=== PATIENT | female | born 1965 | race Caucasian/White ===

== ENCOUNTER 2016-10-23 16:24 | Inpatient (IN) | payer MEDICAID, OTHER ==
[~2016-10-23] VITALS: Ht 175.3 cm; Wt 112.2 kg
[~2016-10-23 16:24] MED LIST: ORPH100T PO; PERC10TA27 PO
[2016-10-23 16:32] VITALS: BP 122/75; PULSE 97; RESP 16; TEMP 98; O2SAT 95
[2016-10-23] MEDS ORDERED: CEPH-460 PO (16:39)
[2016-10-23] MEDS ORDERED: ASPI81CH CHEW (16:39)
[2016-10-23 17:04] LABS: AUTOMATED NEUTROPHIL # 5.9 TH/MM3 (1.8-7.7); BASOPHIL # 0.1 TH/MM3 (0-0.2); BASOPHIL % 0.7 % (0.0-2.0); EOSINOPHIL # 0.4 TH/MM3 (0-0.4); HEMO FLAGS DIFF FINAL; LYMPH % 21.7 % (9.0-44.0); LYMPHOCYTE # 1.9 TH/MM3 (1.0-4.8); MEAN CELL VOLUME 87.9 FL (80.0-100.0); MEAN CORPUSCULAR HEMOGLOBIN 29.1 PG (27.0-34.0); MEAN CORPUSCULAR HGB CONC 33.1 % (32.0-36.0); MONO % 7.2 % (0.0-8.0); NEUT % 66.4 % (16.0-70.0); PLATELET COUNT 245 TH/MM3 (150-450); RED BLOOD COUNT 5.35 MIL/MM3 (4.00-5.30); RED CELL DISTRIBUTION WIDTH 12.5 % (11.6-17.2); WHITE BLOOD COUNT 8.9 TH/MM3 (4.0-11.0)
--- NOTE | 2016-10-23 17:09 | PD ---
HPI Chief Complaint: Abnormal Results Time Seen by Provider: 16:36 Travel History International Travel<30 days: No Contact w/Intl Traveler<30days: No Traveled to known affect area: No History of Present Illness HPI The patient was seen and examined in the presence of the nurse. This patient reports that she had an ultrasound 8 days ago that showed a superficial vein clot in her left leg. She takes a daily baby aspirin. She felt like the clot was moving up her leg so she had an outpatient ultrasound of her leg today. He did not get any results of that. She has had shortness of breath recently and told that to the certified emergency vehicle technician so she recommended she go to the emergency room. She had this done in [place] at a [facility] outpatient clinic. She did not like [place] so she skipped that place and came here to [place]. She also has anxiety. No cough or fever or chest pain. No history of DVT. Symptoms severity is moderate. No alleviating factors. PFSH Past Medical History Anxiety: Yes Diminished Hearing: No Migraines: Yes Pancreatitis: Yes ?: Not Menopausal: Yes Past Surgical History Cholecystectomy: Yes Tonsillectomy: Yes Social History Alcohol Use: Yes (SOCIALLY) Tobacco Use: Yes (E-CIG) Substance Use: No Allergies-Medications (Allergen,Severity, Reaction): Coded Allergies: No Known Allergies (Unverified , 12/09/14) Reported Meds & Prescriptions Reported Meds & Active Scripts Active Reported Aspirin 81 Mg Chew 81 Mg CHEW DAILY Keflex (Cephalexin) 500 Mg Cap 500 Mg PO Q12H Review of Systems General / Constitutional: No: Fever Eyes: No: Visual changes HENT: No: Headaches Cardiovascular: No: Chest Pain or Discomfort Respiratory: Positive: Shortness of Breath Gastrointestinal: No: Abdominal Pain Genitourinary: No: Dysuria Musculoskeletal: Positive: Pain Skin: No Rash Neurologic: No: Weakness Psychiatric: Positive: Anxiety, No: Depression Endocrine: No: Polydipsia Hematologic/Lymphatic: No: Easy Bruising Physical Exam Narrative GENERAL: Well-nourished, well-developed patient in no apparent distress. SKIN: Focused skin assessment reveals no rash and nodules. Skin is Warm and dry. HEAD: Atraumatic. Normocephalic. EYES: Pupils equal and round. No scleral icterus. No injection or drainage. ENT: No nasal bleeding or discharge. Mucous membranes pink and moist. NECK: Trachea midline. No JVD. CARDIOVASCULAR: Regular rate and rhythm. No murmur appreciated. RESPIRATORY: No accessory muscle use. Clear to auscultation. Breath sounds equal bilaterally. GASTROINTESTINAL: Abdomen soft, non-tender, nondistended. Hepatic and splenic margins not palpable. MUSCULOSKELETAL: No obvious deformities. No clubbing. No cyanosis. No edema. NEUROLOGICAL: Awake and alert. No obvious cranial nerve deficits. Motor grossly within normal limits. Normal speech. PSYCHIATRIC: Appropriate mood and affect; insight and judgment normal. Data Data Last Documented VS Vital Signs Date Time Temp Pulse Resp B/P Pulse Ox O2 Delivery O2 Flow Rate FiO2 10/23/16 17:04 15 10/23/16 16:32 98.0 97 122/75 95 Orders Iv Access Insert/Monitor (10/23/16 16:47) Complete Blood Count With Diff (10/23/16 16:47) Prothrombin Time / Inr (Pt) (10/23/16 16:47) Act Partial Throm Time (Ptt) (10/23/16 16:47) Basic Metabolic Panel (Bmp) (10/23/16 16:47) Ct Pulmonary Angiogram (10/23/16 ) Iohexol 350 Inj (Omnipaque 350 Inj) (10/23/16 17:21) Admit Order (Ed Use Only) (10/23/16 17:58) Heparin Infusion CHEIKH.Q1H (10/23/16 18:00) Heparin Inj (Heparin Inj) (10/23/16 18:00) Heparin Inj (Heparin Inj) (10/24/16 00:00) Heparin Inj (Heparin Inj) (10/24/16 00:00) Heparin-D5w Inj (Heparin-D5w Inj) (10/23/16 18:00) Act Partial Throm Time (Ptt) (10/23/16 18:00) Cbc No Diff, Includes Plts (10/23/16 18:00) Cbc No Diff, Includes Plts (10/26/16 06:00) Act Partial Throm Time (Ptt) (10/24/16 01:00) Occult Blood (Hemoccult) Stool (10/23/16 18:00) Labs Laboratory Tests Test 10/23/16 16:58 White Blood Count 8.9 TH/MM3 Red Blood Count 5.35 MIL/MM3 Hemoglobin 15.6 GM/DL Hematocrit 47.0 % Mean Corpuscular Volume 87.9 FL Mean Corpuscular Hemoglobin 29.1 PG Mean Corpuscular Hemoglobin 33.1 % Concent Red Cell Distribution Width 12.5 % Platelet Count 245 TH/MM3 Mean Platelet Volume 8.3 FL Neutrophils (%) (Auto) 66.4 % Lymphocytes (%) (Auto) 21.7 % Monocytes (%) (Auto) 7.2 % Eosinophils (%) (Auto) 4.0 % Basophils (%) (Auto) 0.7 % Neutrophils # (Auto) 5.9 TH/MM3 Lymphocytes # (Auto) 1.9 TH/MM3 Monocytes # (Auto) 0.6 TH/MM3 Eosinophils # (Auto) 0.4 TH/MM3 Basophils # (Auto) 0.1 TH/MM3 CBC Comment DIFF FINAL Differential Comment Prothrombin Time 10.0 SEC Prothromb Time International 0.9 RATIO Ratio Activated Partial 36.7 SEC Thromboplast Time Sodium Level 141 MEQ/L Potassium Level 4.3 MEQ/L Chloride Level 105 MEQ/L Carbon Dioxide Level 27.9 MEQ/L Anion Gap 8 MEQ/L Blood Urea Nitrogen 14 MG/DL Creatinine 1.00 MG/DL Estimat Glomerular Filtration 58 ML/MIN Rate Random Glucose 95 MG/DL Calcium Level 9.2 MG/DL MDM Medical Decision Making Medical Screen Exam Complete: Yes Emergency Medical Condition: Yes Medical Record Reviewed: Yes Differential Diagnosis PE, anxiety, DVT, superficial thrombophlebitis Narrative Course I have reviewed the patient's electronic medical record. I reviewed her lab studies from one month ago. Reviewed her ultrasound results from 8 days ago IV placed CBC is normal Metabolic profile is normal Coagulation studies are normal I reviewed her CT pulmonary angiogram results and discussed with radiologist. She has a moderate sized right sided PE. I have placed her on heparin drip with bolus per weight based protocol. I have reviewed the case with Dr. Russell who will admit She had an outpatient ultrasound of the leg today so I did not repeat that and Dr. Russell will attempt to access the results. I do not have access to that at this time Diagnosis Primary Impression: PE (pulmonary thromboembolism) Admitting Information Admitting Physician Requests: it Randall Early MD Oct 23, 2016 17:09
[2016-10-23 17:17] LABS: BICARBONATE 27.9 MEQ/L (21.0-32.0)
[2016-10-23 17:19] LABS: APTT (PATIENT) 36.7 SEC (24.3-30.1); INTERNATIONAL NORMALIZED RATIO 0.9 RATIO
[2016-10-23] MEDS ORDERED: IOHEXOL 350 MG/ML 10 ML VIAL (for RAD DIAG) IV ONE (17:21)
[2016-10-23 17:37] LABS: POTASSIUM 4.3 MEQ/L (3.5-5.1)
[2016-10-23] MEDS ORDERED: HEPARIN SODIUM - IV 10,000 UNITS/10 ML VIAL IV ONE (18:00)
[2016-10-23] MEDS ORDERED: HEPARIN-D5W INJ 250 ML IV SCH (18:00)
--- NOTE | 2016-10-23 18:20 | RADRPT ---
EXAM DATE/TIME: 10/23/2016 17:03 [place] COMPARISON: No previous studies available for comparison. INDICATIONS : Short of breath. IV CONTRAST: 75 cc Omnipaque 350 (iohexol) IV RADIATION DOSE: 20.71 CTDIvol (mGy) MEDICAL HISTORY : Pancreatitis. Deep venous thrombosis. SURGICAL HISTORY : None. ENCOUNTER: Initial ACUITY: 1 day PAIN SCALE: 0/10 LOCATION: chest TECHNIQUE: Volumetric scanning of the chest was performed using a pulmonary embolism protocol MIP images were re constructed. Using automated exposure control and adjustment of the mA and/or kV according to patien t size, radiation dose was kept as low as reasonably achievable to obtain optimal diagnostic quality images. DICOM format image data is available electronically for review and comparison. Follow-up recommendations for incidentally detected pulmonary nodules are based at a minimum on nodul e size and patient risk factors according to Fleischner Society Guidelines. FINDINGS: PULMONARY ARTERIES: Examination is abnormal. There is a large filling defect extending from the main right pulmonary yazan ry to the lobar branches of the right upper and lower lobes and more distally to the segmental branch es of the right lower lobe. No significant definitive filling defects are noted to the subsegmental l evel on the left. LUNGS: There is a 7 x 8mm nodule in the right upper lobe posteriorly abutting the major fissure. Mild right basilar groundglass opacities likely reflect volume loss. PLEURAE: There is no pleural thickening or pleural effusion. MEDIASTINUM: There is slight flattening of the intervertebral receptor may reflect some degree of right heart stra in heart is otherwise unremarkable without pericardial effusion. No significant mediastinal adenopath y. MUSCULOSKELETAL: No definite focal abnormal lytic or blastic bony lesions. MISCELLANEOUS: Small 1.2 cm low density right adrenal mass consistent with adenoma. CONCLUSION: 1. Abnormal examination demonstrating pulmonary emboli involving the lobar pulmonary artery branches on the right extending to the segmental branches of the right lower lobe. Overall thrombus burden is moderate and there is subtle flattening of the interventricular septum which may reflect some degree of right heart strain. 2. 7 x 8mm right upper lobe solid lung nodule. Recommend followup examination in 6-12 months per Flei schner 2017 guidelines. 3. Probable 1.2 cm right adrenal adenoma. Findings were personally discussed with ER physician. Jake Hernandez MD on October 23, 2016 at 17:45 Board Certified Radiologist. This report was verified electronically.
[2016-10-23] MEDS ORDERED: SODIUM CHLORIDE 0.9% FLUSH 10 ML FLUSH IV FLUSH PRN (19:15)
[2016-10-23 20:00] VITALS: BP 128/80; PULSE 92; RESP 20; TEMP 97.3; O2SAT 96
--- NOTE | 2016-10-23 20:20 | HHI.HP ---
HPI Service [facility] Hospitalists Primary Care Physician Yue Ortega Admission Diagnosis acute PE Chief Complaint: clot in leg, SOB, sent from u/s dept Travel History International Travel<30 Days: No Contact w/Intl Traveler <30 Da: No Traveled to Known Affected Are: No History of Present Illness This 51-year-old obese but otherwise healthy patient reports that she had an ultrasound 8 days ago that showed a superficial vein clot in her left leg. She subsequently started taking a daily baby aspirin. She felt like the clot was moving up her leg earlier this week so she had an outpatient ultrasound of her leg today. I have reviewed those results which also revealed superficial clot with no DVT. The superficial clot appears nonocclusive. Nonetheless she had reported shortness of breath to the technology auditor during the exam so the tech recommended she go to the emergency room. She had this done in [place] at a [facility] outpatient clinic. She initially stopped at [facility] but stated "it would be hours before I was seen there" so she came to the [place] emergency room for evaluation. She was found to have moderate-sized pulmonary embolus on CTA done here. She states that she has mild shortness of breath but is actually much improved from earlier today. No hemoptysis or hematemesis. No dyspnea on exertion. No chest pain. No fevers or chills. No prolonged immobility. It is noted that she typically wears pressure stockings for her varicose veins but recently lost her job so she stopped wearing her pressure stockings. No recent surgery. No known cancer. She also has mild anxiety and some chronic low back pain. No cough or fever or chest pain. No history of DVT, but did have superficial venous thrombosis approximately 2 and half years ago and has chronic varicose veins. Review of Systems Constitutional: DENIES: Diaphoretic episodes, Fatigue, Fever, Weight gain, Weight loss, Chills, Dizziness, Change in appetite, Night Sweats Endocrine: DENIES: Abnorml menstrual pattern, Heat/cold intolerance, Polydipsia , Polyuria, Polyphagia Eyes: DENIES: Blurred vision, Diplopia, Eye inflammation, Eye pain, Vision loss , Photosensitivity, Double Vision Ears, nose, mouth, throat: DENIES: Tinnitus, Hearing loss, Vertigo, Nasal discharge, Oral lesions, Throat pain, Hoarseness, Ear Pain, Running Nose, Epistaxis, Sinus Pain, Toothache, Odynophagia Respiratory: COMPLAINS OF: Shortness of breath, DENIES: Apneas, Cough, Snoring , Wheezing, Hemoptysis, Sputum production Cardiovascular: DENIES: Chest pain, Palpitations, Syncope, Dyspnea on Exertion , PND, Lower Extremity Edema, Orthopnea, Claudication Gastrointestinal: DENIES: Abdominal pain, Black stools, Bloody stools, BRB per rectum, Constipation, Diarrhea, GERD, Nausea, Reflux, Vomiting, Difficulty Swallowing, Anorexia, See HPI Musculoskeletal: COMPLAINS OF: Back pain, DENIES: Joint pain, Muscle aches, Stiffness, Joint Swelling, Neck pain Integumentary: COMPLAINS OF: Rash Hematologic/lymphatic: DENIES: Bruising, Lymphadenopathy Immunologic/allergic: DENIES: Eczema, Urticaria Neurologic: DENIES: Abnormal gait, Headache, Localized weakness, Paresthesias, Seizures, Speech Problems, Tremor, Poor Balance Psychiatric: COMPLAINS OF: Anxiety Past Family Social History Past Medical History Dependent lower extremity edema Obesity Varicose veins History of gallstone pancreatitis, isolated episode Irritable bowel syndrome Superficial thrombophlebitis 2 and half years ago unprovoked Past Surgical History Lap cholecystectomy approximately 2007 Reported Medications Baby aspirin daily Tumeric daily Allergies: Coded Allergies: No Known Allergies (Unverified , 12/09/14) Family History She is adopted and is unaware of any of her biological family history Social History No tobacco in several years but does smoke a cigarette which she has done for 3 years. She did begin smoking cigarettes at age 12 and did that for approximately 25 years. 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 Physical Exam Vital Signs Vital Signs Date Time Temp Pulse Resp B/P Pulse Ox O2 Delivery O2 Flow Rate FiO2 10/23/16 17:04 15 10/23/16 16:32 98.0 97 16 122/75 95 Physical Exam GENERAL: This is a well-nourished, obese, well-developed patient, in no apparent distress. Alert and oriented. Cooperative. Able to speak in complete sentences without any difficulty. SKIN: Left lower extremity noted for mild erythema edematous serpiginous rash with mild tenderness to palpation along the proximal medial calf and distal medial thigh. No obvious deep cords on exam. Cool and dry. HEAD: Atraumatic. Normocephalic. No temporal or scalp tenderness. EYES: Pupils equal round and reactive. Extraocular motions intact. No scleral icterus. No injection or drainage. ENT: Nose without bleeding, purulent drainage or septal hematoma. Airway patent. NECK: Trachea midline. No JVD or lymphadenopathy. Supple, nontender, no meningeal signs. CARDIOVASCULAR: Regular rate and rhythm without murmurs, gallops, or rubs. RESPIRATORY: Clear to auscultation. Breath sounds equal bilaterally. No wheezes , rales, or rhonchi. GASTROINTESTINAL: Abdomen soft, non-tender, nondistended. No hepato-splenomegaly , or palpable masses. No guarding. MUSCULOSKELETAL: Extremities without clubbing, cyanosis, or edema. No joint tenderness, effusion, or edema noted. Left medial calf tenderness is noted. Varicose veins noted bilateral distal lower extremities. NEUROLOGICAL: Awake and alert. Cranial nerves II through XII intact. Motor and sensory grossly within normal limits. Five out of 5 muscle strength in all muscle groups. Normal speech. Laboratory Laboratory Tests Test 10/23/16 16:58 White Blood Count 8.9 Red Blood Count 5.35 Hemoglobin 15.6 Hematocrit 47.0 Mean Corpuscular Volume 87.9 Mean Corpuscular Hemoglobin 29.1 Mean Corpuscular Hemoglobin 33.1 Concent Red Cell Distribution Width 12.5 Platelet Count 245 Mean Platelet Volume 8.3 Neutrophils (%) (Auto) 66.4 Lymphocytes (%) (Auto) 21.7 Monocytes (%) (Auto) 7.2 Eosinophils (%) (Auto) 4.0 Basophils (%) (Auto) 0.7 Neutrophils # (Auto) 5.9 Lymphocytes # (Auto) 1.9 Monocytes # (Auto) 0.6 Eosinophils # (Auto) 0.4 Basophils # (Auto) 0.1 CBC Comment DIFF FINAL Differential Comment Prothrombin Time 10.0 Prothromb Time International 0.9 Ratio Activated Partial 36.7 Thromboplast Time Sodium Level 141 Potassium Level 4.3 Chloride Level 105 Carbon Dioxide Level 27.9 Anion Gap 8 Blood Urea Nitrogen 14 Creatinine 1.00 Estimat Glomerular Filtration 58 Rate Random Glucose 95 Calcium Level 9.2 Result Diagram: 10/23/16 1658 10/23/16 1658 Imaging Last [address] Angiography 10/23/16 0000 Signed Impressions: Service Date/Time: Sunday, October 23, 2016 17:03 - CONCLUSION: 1. Abnormal examination demonstrating pulmonary emboli involving the lobar pulmonary artery branches on the right extending to the segmental branches of the right lower lobe. Overall thrombus burden is moderate and there is subtle flattening of the interventricular septum which may reflect some degree of right heart strain. 2. 7 x 8mm right upper lobe solid lung nodule. Recommend followup examination in 6-12 months per Fleischner 2017 guidelines. 3. Probable 1.2 cm right adrenal adenoma. Findings were personally discussed with ER physician. Jkae Hernandez MD Review of left lower extremity venous Doppler done at [facility] October 23 at approximately 2 PM reveals; Nonocclusive thrombosis extending through saphenous vein. Venous stasis noted in the popliteal vein. No DVT seen. Assessment and Plan Problem List: (1) PE (pulmonary thromboembolism) Status: Acute Plan: This appears to be an unprovoked pulmonary embolism in a patient who is quite stable. Her risk factors include obesity, varicose veins, and recent sedentary lifestyle. She has been started on heparin drip protocol. I will likely convert her to low molecular weight heparin tomorrow. Avodart he made her aware of some of her options for outpatient care including warfarin which she may elect since it is cheaper and she lost her job recently versus some of the newer alternative oral anticoagulants such as Xarelto or Eliquis. We'll place on telemetry and check echo. She does not appear in any acute distress during my exam. She actually states that her shortness of breath is better now than it was earlier today. Code Status full Discussed Condition With Patient, her son and daughter, and ER physician. Physician Certification 2 Midnight Certification Type: Admission for Inpatient Services Order for Inpatient Services The services are ordered in accordance with Medicare regulations or non- Medicare payer requirements, as applicable. In the case of services not specified as inpatient-only, they are appropriately provided as inpatient services in accordance with the 2-midnight benchmark. Estimated LOS (days): 3 days is the estimated time the patient will need to remain in the hospital, assuming treatment plan goals are met and no additional complications. Post-Hospital Plan: Home Leandro Russell MD PhD Oct 23, 2016 20:20
[2016-10-23] MEDS ORDERED: TEMAZEPAM 15 MG CAP PO PRN (20:30)
[2016-10-23 21:00] VITALS: PULSE 97
[2016-10-23] MEDS: SODIUM CHLORIDE 0.9% FLUSH 10 ML FLUSH IV FLUSH SCH (21:00)
[2016-10-24] VITALS (8 sets, daily range): BP systolic 112–143; BP diastolic 70–82; PULSE 83–97; RESP 18–20; TEMP 95.6–96.9; O2SAT 94–96
[2016-10-24] MEDS ORDERED: HEPARIN SODIUM - IV 10,000 UNITS/10 ML VIAL IV PRN ×2
[2016-10-24 01:33] LABS: APTT (PATIENT) 115.3 SEC (24.3-30.1)
[2016-10-24 05:54] LABS: HEMATOCRIT 47.9 % (35.0-46.0); MEAN CELL VOLUME 88.9 FL (80.0-100.0); MEAN CORPUSCULAR HEMOGLOBIN 29.3 PG (27.0-34.0); PLATELET COUNT 261 TH/MM3 (150-450); RED BLOOD COUNT 5.39 MIL/MM3 (4.00-5.30); RED CELL DISTRIBUTION WIDTH 12.7 % (11.6-17.2); REVIEW FLAG FINAL; WHITE BLOOD COUNT 11.2 TH/MM3 (4.0-11.0)
[2016-10-24 06:06] LABS: APTT (PATIENT) 80.9 SEC (24.3-30.1)
--- NOTE | 2016-10-24 07:11 | HHI.PR ---
Subjective Remarks Feels better this morning. Less swelling and pain in the legs and no more shortness of breath. Tolerating oral intake well. Objective Vitals Vital Signs Date Time Temp Pulse Resp B/P Pulse Ox O2 Delivery O2 Flow Rate FiO2 10/24/16 04:00 96.9 97 20 117/70 94 10/24/16 00:00 95.6 86 20 143/80 94 10/23/16 21:00 97 10/23/16 20:00 97.3 92 20 128/80 96 10/23/16 17:04 15 10/23/16 16:32 98.0 97 16 122/75 95 10/23/16 10/23/16 10/24/16 15:00 23:00 07:00 Intake Total 120 ml Balance 120 ml Intake Oral 120 ml # Voids 1 # Bowel Movements 1 GENERAL: Obese, alert and oriented, in no acute distress. SKIN: Mild erythematous streaking left proximal medial calf and left medial distal thigh but decreased from yesterday's exam. HEAD: Normocephalic. Atraumatic. EYES: No scleral icterus. No injection or drainage. NECK: Supple, trachea midline. No JVD or lymphadenopathy. CARDIOVASCULAR: Regular rate and rhythm without murmurs, gallops, or rubs. RESPIRATORY: Breath sounds equal bilaterally. No accessory muscle use. GASTROINTESTINAL: Abdomen soft, non-tender, nondistended. Bowel sounds normal. MUSCULOSKELETAL: No cyanosis. Trace edema around both ankles. Left medial thigh and proximal calf as noted. BACK: No CVA tenderness. Result Diagram: 10/24/16 0545 10/23/16 1658 Imaging Last [address] Angiography 10/23/16 0000 Signed Impressions: Service Date/Time: Sunday, October 23, 2016 17:03 - CONCLUSION: 1. Abnormal examination demonstrating pulmonary emboli involving the lobar pulmonary artery branches on the right extending to the segmental branches of the right lower lobe. Overall thrombus burden is moderate and there is subtle flattening of the interventricular septum which may reflect some degree of right heart strain. 2. 7 x 8mm right upper lobe solid lung nodule. Recommend followup examination in 6-12 months per Fleischner 2017 guidelines. 3. Probable 1.2 cm right adrenal adenoma. Findings were personally discussed with ER physician. Jake Hernandez MD Review of left lower extremity venous Doppler done at [facility] October 23 at approximately 2 PM reveals; Nonocclusive thrombosis extending through saphenous vein. Venous stasis noted in the popliteal vein. No DVT seen. Urinary Catheter: No Vascular Central Line Catheter: No A/P Problem List: (1) PE (pulmonary thromboembolism) Status: Acute Plan: This appears to be an unprovoked pulmonary embolism in a patient who is quite stable. Her risk factors include obesity, varicose veins, and recent sedentary lifestyle. We'll continue on telemetry and check echo. She does not appear in any acute distress during my exam. Shortness of breath has resolved. We again had a long discussion regarding appropriate anticoagulation therapy. She is done some reading on her own overnight after I presented her with options yesterday. At this point we will convert to once daily Lovenox subcutaneously 1-2 hours after stopping her heparin drip. She will remain on the Lovenox for 5 days and then convert to either Eliquis or Xarelto as an outpatient. We discussed the pros and cons as well as risks benefits side effects of these medications extensively. We also discussed the cheaper option of warfarin. Discharge Planning Hopefully discharge home tomorrow. Leandro Russell MD PhD Oct 24, 2016 07:11
[2016-10-24] MEDS: ENOXAPARIN SODIUM 80 MG/0.8 ML SYRINGE SQ SCH (08:51)
[2016-10-24] MEDS: ENOXAPARIN SODIUM 100 MG/ML SYRINGE SQ SCH (08:51)
[2016-10-24] MEDS: SODIUM CHLORIDE 0.9% FLUSH 10 ML FLUSH IV FLUSH SCH ×2 (09:00→21:00)
--- NOTE | 2016-10-24 09:48 | ECHRPT ---
Indication: pulmonary embolus CONCLUSIONS Normal left ventricular size. Wall thickness is normal. No regional wall motion abnormalities are present. The right ventricular systoilc function is normal. The right ventriclar size is upper limits of normal. The left atrial size is upper limits of normal. The aortic valve is not well visualized. There is trace tricuspid valve regurgitation. Trivial pulmonary valve regurgitation. The pulmonary valve is not well visualized. BP: / HR: Rhythm: MEASUREMENTS (Male / Female) Normal Values Technical Quality:Fair 2D ECHO LV Diastolic Diameter PLAX 4.3 cm 4.2 - 5.9 / 3.9 - 5.3 cm LV Systolic Diameter PLAX 3.1 cm IVS Diastolic Thickness 1.0 cm 0.6 - 1.0 / 0.6 - 0.9 cm LVPW Diastolic Thickness 1.1 cm 0.6 - 1.0 / 0.6 - 0.9 cm LV Relative Wall Thickness 0.5 RV Internal Dim ED PLAX 3.2 cm M-MODE Aortic Root Diameter MM 3.3 cm LA Systolic Diameter MM 4.1 cm LA Ao Ratio MM 1.2 AV Cusp Separation MM 1.8 cm DOPPLER Mitral E Point Velocity 49.9 cm/s Mitral A Point Velocity 71.1 cm/s Mitral E to A Ratio 0.7 LV E' Lateral Velocity 10.3 cm/s Mitral E to LV E' Lateral Ratio 4.8 LV E' Septal Velocity 8.1 cm/s Mitral E to LV E' Septal Ratio 6.2 FINDINGS LEFT VENTRICLE Normal left ventricular size. Wall thickness is normal. The left ventricular systolic function is normal with an estimated ejection fraction in the range of 60-65%. No regional wall motion abnormalities are present. RIGHT VENTRICLE The right ventricular systoilc function is normal. The right ventriclar size is upper limits of normal. LEFT ATRIUM The left atrial size is upper limits of normal. RIGHT ATRIUM The right atrial size is normal. ATRIAL SEPTUM Normal atrial septal thickness without atrial level shunting by limited color doppler interrogation. AORTA The aortic root and proximal ascending aorta are normal in size on limited imaging. MITRAL VALVE Structurally normal mitral valve. No mitral valve stenosis or regurgitation. AORTIC VALVE The aortic valve is not well visualized. No aortic valve stenosis or regurgitation. TRICUSPID VALVE Structurally normal tricuspid valve. There is trace tricuspid valve regurgitation. PULMONARY VALVE Trivial pulmonary valve regurgitation. The pulmonary valve is not well visualized. VESSELS The inferior vena cava is normal in size. PERICARDIUM No pericardial effusion. Amando Xie MD (Electronically Signed) Final Date:24 October 2016 09:47
[2016-10-24 13:15] LABS: APTT (PATIENT) 59.1 SEC (24.3-30.1)
[2016-10-25] VITALS: BP 128/68; PULSE 102; RESP 18; TEMP 97.2; O2SAT 94
[2016-10-25 04:00] VITALS: BP 125/71; PULSE 93; RESP 16; TEMP 97.4; O2SAT 95
[2016-10-25 07:56] VITALS: BP 122/78; PULSE 83; RESP 16; TEMP 97.4; O2SAT 94
--- NOTE | 2016-10-25 08:19 | HHI.PR ---
Subjective Remarks Feeling much better. Has been ambulating around the hallways. No shortness of breath today. Objective Vitals Vital Signs Date Time Temp Pulse Resp B/P Pulse Ox O2 Delivery O2 Flow Rate FiO2 10/25/16 07:56 97.4 83 16 122/78 94 10/25/16 04:00 97.4 93 16 125/71 95 10/25/16 00:00 97.2 102 18 128/68 94 10/24/16 20:19 96.8 92 20 126/75 96 10/24/16 19:15 88 10/24/16 16:00 96.9 93 20 116/77 95 10/24/16 12:00 96.6 83 20 112/82 95 10/24/16 10/24/16 10/25/16 15:00 23:00 07:00 Intake Total 0 ml 0 ml Balance 0 ml 0 ml IV Total 0 ml 0 ml # Voids 5 GENERAL: Obese, alert and oriented, in no acute distress. SKIN: Minimal evidence of phlebitis home left medial thigh and proximal left medial calf. No significant erythema on today's exam. HEAD: Normocephalic. Atraumatic. EYES: No scleral icterus. No injection or drainage. NECK: Supple, trachea midline. No JVD or lymphadenopathy. CARDIOVASCULAR: Regular rate and rhythm without murmurs, gallops, or rubs. RESPIRATORY: Breath sounds equal bilaterally. No accessory muscle use. GASTROINTESTINAL: Abdomen soft, non-tender, nondistended. Bowel sounds normal. MUSCULOSKELETAL: No cyanosis. Trace edema around both ankles. Left medial thigh and proximal calf as noted. BACK: No CVA tenderness. Result Diagram: 10/24/16 0545 10/23/16 1658 Imaging Last [address] Angiography 10/23/16 0000 Signed Impressions: Service Date/Time: Sunday, October 23, 2016 17:03 - CONCLUSION: 1. Abnormal examination demonstrating pulmonary emboli involving the lobar pulmonary artery branches on the right extending to the segmental branches of the right lower lobe. Overall thrombus burden is moderate and there is subtle flattening of the interventricular septum which may reflect some degree of right heart strain. 2. 7 x 8mm right upper lobe solid lung nodule. Recommend followup examination in 6-12 months per Fleischner 2017 guidelines. 3. Probable 1.2 cm right adrenal adenoma. Findings were personally discussed with ER physician. Jake Hernandez MD Review of left lower extremity venous Doppler done at [facility] October 23 at approximately 2 PM reveals; Nonocclusive thrombosis extending through saphenous vein. Venous stasis noted in the popliteal vein. No DVT seen. Urinary Catheter: No Vascular Central Line Catheter: No A/P Problem List: (1) PE (pulmonary thromboembolism) Status: Acute Plan: This appears to be an unprovoked pulmonary embolism in a patient who is quite stable. Her risk factors include obesity, varicose veins, and recent sedentary lifestyle. Echocardiogram and telemetry reviewed. She does not appear in any acute distress during my exam. Shortness of breath has resolved. We again had a long discussion regarding appropriate anticoagulation therapy. She has decided to convert to Eliquis as an outpatient after her initial 5 days of Lovenox therapy. She will need to be on this regimen for at least 3 months. We have discussed risks benefits side effects of these medications. We have discussed specific modifications to her lifestyle to help protect her from any injury that could cause bleeding. (2) Abnormal TSH Status: Acute Plan: Reportedly was normal as an outpatient recently. T4 is normal. The elevated TSH could be associated with her current acute illness. She is advised to have this rechecked in approximately 6 weeks. Discharge Planning Discharge home Leandro Russell MD PhD Oct 25, 2016 08:19
[2016-10-25 08:21] LABS: AUTOMATED NEUTROPHIL # 5.3 TH/MM3 (1.8-7.7); BASOPHIL % 0.3 % (0.0-2.0); EOSINOPHIL # 0.3 TH/MM3 (0-0.4); HEMATOCRIT 45.1 % (35.0-46.0); HEMO FLAGS DIFF FINAL; LYMPH % 24.4 % (9.0-44.0); MEAN CELL VOLUME 90.4 FL (80.0-100.0); MEAN CORPUSCULAR HEMOGLOBIN 29.8 PG (27.0-34.0); MEAN CORPUSCULAR HGB CONC 32.9 % (32.0-36.0); NEUT % 63.3 % (16.0-70.0); PLATELET COUNT 238 TH/MM3 (150-450); RED BLOOD COUNT 4.98 MIL/MM3 (4.00-5.30); RED CELL DISTRIBUTION WIDTH 12.9 % (11.6-17.2); WHITE BLOOD COUNT 8.3 TH/MM3 (4.0-11.0)
[2016-10-25] MEDS ORDERED: APIX5TAB PO (08:23)
[2016-10-25] MEDS ORDERED: ENOX100P SQ (08:23)
[2016-10-25] MEDS: ENOXAPARIN SODIUM 100 MG/ML SYRINGE SQ SCH (08:24)
[2016-10-25] MEDS: SODIUM CHLORIDE 0.9% FLUSH 10 ML FLUSH IV FLUSH SCH (08:24)
[2016-10-25] MEDS: ENOXAPARIN SODIUM 80 MG/0.8 ML SYRINGE SQ SCH (08:24)
--- NOTE | 2016-10-25 08:25 | HHI.DS ---
Discharge Summary Admission Date Oct 23, 2016 at 18:05 Discharge Date: Oct 25, 2016 Admitting Diagnosis acute PE (1) PE (pulmonary thromboembolism) Diagnosis: Principal (2) Abnormal TSH Diagnosis: Secondary Brief History This 51-year-old obese but otherwise healthy patient reports that she had an ultrasound 8 days ago that showed a superficial vein clot in her left leg. She subsequently started taking a daily baby aspirin. She felt like the clot was moving up her leg earlier this week so she had an outpatient ultrasound of her leg today. I have reviewed those results which also revealed superficial clot with no DVT. The superficial clot appears nonocclusive. Nonetheless she had reported shortness of breath to the biomedical technician during the exam so the tech recommended she go to the emergency room. She had this done in [place] at a [facility] outpatient clinic. She initially stopped at [facility] but stated "it would be hours before I was seen there" so she came to the [place] emergency room for evaluation. She was found to have moderate-sized pulmonary embolus on CTA done here. She states that she has mild shortness of breath but is actually much improved from earlier today. No hemoptysis or hematemesis. No dyspnea on exertion. No chest pain. No fevers or chills. No prolonged immobility. It is noted that she typically wears pressure stockings for her varicose veins but recently lost her job so she stopped wearing her pressure stockings. No recent surgery. No known cancer. She also has mild anxiety and some chronic low back pain. No cough or fever or chest pain. No history of DVT, but did have superficial venous thrombosis approximately 2 and half years ago and has chronic varicose veins. CBC/BMP: 10/24/16 0545 10/23/16 1658 Significant Findings Laboratory Tests Test 10/23/16 10/24/16 10/24/16 10/24/16 16:58 01:00 05:45 12:44 Red Blood Count 5.35 MIL/MM3 5.39 MIL/MM3 (4.00-5.30) (4.00-5.30) Hemoglobin 15.6 GM/DL 15.8 GM/DL (11.6-15.3) (11.6-15.3) Hematocrit 47.0 % 47.9 % (35.0-46.0) (35.0-46.0) Activated Partial 36.7 SEC 115.3 SEC 80.9 SEC 59.1 SEC Thromboplast Time (24.3-30.1) (24.3-30.1) (24.3-30.1) (24.3-30.1) Estimat Glomerular Filtration 58 ML/MIN (>89) Rate White Blood Count 11.2 TH/MM3 (4.0-11.0) C-Reactive Protein 2.39 MG/DL (0.00-0.30) Thyroid Stimulating Hormone 10.200 uIU/ML 3rd Gen (0.358-3.740) Hospital Course Patient did quite well throughout hospital course. Shortness of breath resolved. Swelling in left lower extremity improved as well. She was ambulating throughout the hallways without difficulty on room air on day of discharge and day prior to discharge. CTA and echocardiogram were reviewed with the patient. Extensive discussion regarding anticoagulation options was undertaken with patient on several occasions. She opted for initial Lovenox for 5 doses followed by Eliquis twice a day. She understands risks benefits side effects of this approach. Pt Condition on Discharge: Stable Discharge Disposition: Discharge Home Discharge Instructions DIET: Follow Instructions for: Heart Healthy Diet Activities you can perform: Regular-No Restrictions Other Activity Instructions: head injury and fall precautions Follow up Referrals: PCP Follow-up New Orders: TSH WITH REFLEX FREE T4 - 6 Weeks New Medications: Apixaban (Eliquis) 5 Mg Tab 5 MG PO BID start on Oct 29, 2016. Do not take Lovenox starting Oct 29. Blood Clot Prevention #60 Ref 0 TAB Enoxaparin Inj (Lovenox Inj) 100 Mg/Ml Syr 170 MG SQ Q24H PE #7 INJECTION Discontinued Medications: Aspirin (Aspirin) 81 Mg Chew 81 MG CHEW DAILY Ref 0 TAB Cephalexin (Keflex) 500 Mg Cap 500 MG PO Q12H Infection Ref 0 CAP Leandro Russell MD PhD Oct 25, 2016 08:25
== END 2016-10-25 10:34 | disposition home or self-care (01) | DRG 176 ==
LOC: PHED 16:24 → PHEDA 18:05 → PH3B 19:20
PROVIDERS: ADMIT Family Medicine; ATTEND Family Medicine
DX: I26.99 Other pulmonary embolism without acute cor pulmonale (principal); E66.9 Obesity, unspecified; F41.9 Anxiety disorder, unspecified; G89.29 Other chronic pain; I83.93 Asymptomatic varicose veins of bilateral lower extremities; R94.6 Abnormal results of thyroid function studies; M54.5 Low back pain; I87.8 Other specified disorders of veins; K58.9 Irritable bowel syndrome, unspecified; Z68.36 Body mass index [BMI] 36.0-36.9, adult; Z72.0 Tobacco use; Z86.72 Personal history of thrombophlebitis
CPT/HCPCS: 71275; 80048; 81241; 82272; 84439; 84443; 85025; 85027; 85610; 85730; 86038; 86140; 93306; J1644; J1650; Q9967